=== PATIENT | female | born 1985 | race Caucasian/White ===

== ENCOUNTER 2018-06-30 00:27 | Inpatient (IN) | payer MEDICAID ==
[~2018-06-30] VITALS: Ht 160 cm; Wt 85.9 kg
[2018-06-30] MEDS ORDERED: METHYLERGONOVINE 0.2 MG INJ IM PRN (01:30)
[2018-06-30] MEDS ORDERED: OXYTOCIN 30 UNITS/LR 500 ML IV PRN (01:30)
[2018-06-30] MEDS ORDERED: MISOPROSTOL 200 MCG TAB PR PRN ×2 (01:30→08:00)
[2018-06-30] MEDS ORDERED: CEFAZOLIN 2 GM/50 ML (PMX) 50 ML IVPB SCH (01:30)
[2018-06-30] MEDS ORDERED: CARBOPROST 250 MCG INJ IM PRN (01:30)
[2018-06-30] MEDS: LACTATED RINGER'S 1,000 ML IV SCH ×3 (01:35→17:28)
[2018-06-30 01:38] VITALS: Ht 160 cm; Wt 85.9 kg
--- NOTE | 2018-06-30 02:28 | HP ---
Date/Time of Note Date/Time of Note DATE: 06/30/18 TIME: 02:15 OB - History Hx of Present Free Text/Dictation 33y.o who had x2 previous c/s her at 38weeks with c/o uc's since 06/29/1799 and leaking since 06/29/18 VE 0.5/50/-3 with spec exam seen pooling in the vagina,ntz pos ROM plus sent. patient also desire to have tubal sterilization , signed on 05/22/18 last meal was course was unevenful. GBS neg prepare for repeat C/S and BTL for her OB early in am. Chief Complaint: UC's SROM Estimated Due Date: Jul 16, 2018 : 4 Para: 2 Spontaneous : 1 Therapeutic : 0 Care: Good Care Ultrasounds: Normal mid trimester US Obstetrical Complications: None Medical Complications: None Past Family/Social History * Past Medical, Surgical, Family and Obstetric Histories reviewed from chart. Blood Type: O+ Rubella: immune RPR/VDRL: Negative GBS Status: Negative HBsAG: Negative OB Admission Exam Physical Exam HEENT: WNL Heart: Rhythm Normal Lungs: Clear, Equal Abdomen: WNL Extremities: Normal Reflexes: Normal Cervical Dilatation: Fingertip Effacement: 50% Station: -3 Membranes: Ruptured Amniotic Fluid: Clear Heart Rate: 130's Accelerations: Accelerations Present Decelerations: No Decelerations Varibility: Moderate Intensity: Mild OB Assessment/Plan Reason for admission: rupture of membranes Other Assessment: IUP 38w SROM in early labor Plan: Section, Other (BTL) NEENA ARITA MD Jun 30, 2018 02:25
--- NOTE | 2018-06-30 05:03 | TRIAGE ---
OB Triage Datetime Report Generated by CPN: 06/30/2018 05:03 Datetime: 06/30/2018 04:28 Monitor Mode: External Datetime: 06/30/2018 04:25 Assessment Type: Admission Assessment Vaginal Bleeding: None Maternal Assessment Level of Consciousness: Fully Conscious DTR's/Clonus: DTRs 2+; No Clonus Headache: Denies Blurred Vision: No Respiratory Effort: Unlabored; Regular Rhythm; Equal Expansion Breath Sounds, Left: Clear and Equal Breath Sounds, Right: Clear and Equal Nausea/Vomiting: Denies RUQ Epigastric Pain: Denies Lower Extremities Edema: None Degree: None Upper Extremities Edema: None Degree: None Facial Edema: None Fall Risk Assessment History of Falling: (0) No Secondary Diagnosis: (0) No Ambulatory Aid: (0) Bedrest/Nurse Assist IV Therapy: (0) No Gait: (0) Normal/Bedrest/Immobile Mental Status: (0) Oriented to Own Ability Fall Score: 0 Fall Risk Score Definition: No Risk: No action required Pain Assessment Pain Scale: 3 Pain Presence: Intermittent Pain Type: Contraction Pain Location: Back (Annotations: lower abdomen) Pain Goal: 4 Datetime: 06/30/2018 04:08 Monitor Mode: External Monitor Mode: External US Datetime: 06/30/2018 03:16 Monitor Mode: External Monitor Mode: External US Datetime: 06/30/2018 03:00 Stage of : OB Triage Labor Evaluation Frequency: IRREGULAR Monitor Mode: External Duration (sec)2399: 50-90 Quality: Mild Pattern: Normal: <= 5 Contractions in 10 Minutes Resting Tone Wright: Relaxed Heart Rate FHR Baseline Rate: 135 Monitor Mode: External US Variability: Moderate 6-25 bpm Accelerations: 15X15 Decelerations: None Category: Category I Datetime: 06/30/2018 02:12 Time of Arrival: 06/30/2018 01:00 EGA: 38.0 Arrived By: Stretcher Arrived From: Other Unit in Hospital Datetime: 06/30/2018 02:00 Stage of : OB Triage Labor Evaluation Frequency: 3-8 Monitor Mode: External Duration (sec)2399: 70-120 Quality: Mild Pattern: Normal: <= 5 Contractions in 10 Minutes Resting Tone Wright: Relaxed Heart Rate FHR Baseline Rate: 135 Monitor Mode: External US Variability: Moderate 6-25 bpm Accelerations: 15X15 Decelerations: None Category: Category I Datetime: 06/30/2018 01:40 Time of Arrival: 06/30/2018 00:16 EGA: 38.0 Arrived By: Ambulatory Arrived From: Home Chief Complaint: CONTRACTIONS SINCE 1800 SROM WITH CLEAR FLUIDS @2330 Movement: Present Contractions: Irregular Time Contractions Began: 06/29/2018 18:00 Contractions: 6-11 Rupture of Membranes: Ruptured Vaginal Bleeding: Scant Vaginal Discharge: Present Recent Sexual Intercouse: Denies Abdominal Trauma: Not Applicable Patient Complaints: Contractions; Other Time Provider Notified: 06/30/2018 01:00 Provider Notified: DR. ARITA Initial Plan: EFM, SVE, NITRIZINE, CALL OB Datetime: 06/30/2018 01:00 Stage of : OB Triage Labor Evaluation Frequency: 6-11 Monitor Mode: External Duration (sec)2399: 80-90 Quality: Mild Pattern: Normal: <= 5 Contractions in 10 Minutes Resting Tone Wright: Relaxed Heart Rate FHR Baseline Rate: 135 Monitor Mode: External US Variability: Moderate 6-25 bpm Accelerations: 15X15 Decelerations: Early Category: Category I Datetime: 06/30/2018 00:35 Vaginal Exam Dilatation (cms): 0.5 Effacement (%): 50 Station: -3 Exam By: Panfilo LOPEZ Membrane Status: Ruptured Membranes Ruptured Date/Time: 06/29/2018 23:30 Membranes Rupture Method: Spontaneous Amniotic Fluid Color: Clear Amniotic Fluid Amount: Moderate Amniotic Fluid Odor: None Vaginal Bleeding: Scant Nitrazine: Positive Cervix, Consistency: Moderate Cervix, Position: Posterior Datetime: 06/30/2018 00:30 Stage of : OB Triage Maternal Assessment Level of Consciousness: Fully Conscious DTR's/Clonus: DTRs 2+; No Clonus Headache: Denies Blurred Vision: No Respiratory Effort: Unlabored; Regular Rhythm; Equal Expansion Breath Sounds, Left: Clear and Equal Breath Sounds, Right: Clear and Equal Nausea/Vomiting: Denies RUQ Epigastric Pain: Denies Lower Extremities Edema: None Degree: None Upper Extremities Edema: None Degree: None Facial Edema: None Temperature Route: Oral Fall Risk Assessment History of Falling: (0) No Secondary Diagnosis: (0) No Ambulatory Aid: (0) Bedrest/Nurse Assist IV Therapy: (0) No Gait: (0) Normal/Bedrest/Immobile Mental Status: (0) Oriented to Own Ability Fall Score: 0 Fall Risk Score Definition: No Risk: No action required Pain Assessment Pain Scale: 2 Pain Presence: Intermittent Pain Type: Contraction Pain Location: Abdomen Pain Goal: 5 Pain Relief Measures: Comfort Measures Datetime: 06/30/2018 00:29 Monitor Mode: External Contraction Comments: APPLIED Monitor Mode: External US Comments: APPLIED
[2018-06-30] MEDS ORDERED: EPHEDrine 50 MG INJ ONE (05:45)
[2018-06-30] MEDS ORDERED: METOCLOPRAMIDE 10 MG INJ ONE (05:45)
[2018-06-30] MEDS ORDERED: CITRIC ACID/NA CITRATE 30 ML CUP PO STA ×2 (06:10→06:13)
[2018-06-30] MEDS ORDERED: CITRIC ACID/NA CITRATE 30 ML CUP ONE (06:22)
--- NOTE | 2018-06-30 06:30 | PREAC ---
Date/Time of Note Date/Time of Note DATE: 06/30/18 TIME: 06:27 Anesthesia Eval and Record Evaluation Time Pre-Procedure Interview DATE: 06/30/18 TIME: 05:57 Age 33 Sex female NPO: 8 hrs Preoperative diagnosis , labor, prev. c/s, water broke, sterilization request Planned procedure repeat c/s, btl Past Medical History Past Medical History: Includes : : (4), Para: (2), Gestational age: (38.5) Surgery & Anesthesia Issues No known issue Meds Anticoagulation: No Beta Jeannette within 24 hr: No Reason Beta Jeannette not given: Pt. not on B-Jeannette Current Medications Lactated Ringer's 1,000 ml @ 125 mls/hr Q8H IV Last administered on 06/30/18at 04:29; Admin Dose 125 MLS/HR; Start 06/30/18 at 01:10 Cefazolin Sodium/ Dextrose 50 ml @ 100 mls/hr ONCE IVPB ; Start 06/30/18 at 01:30 Oxytocin/Lactated Ringer's 500 ml @ 125 mls/hr POST IV ; Start 06/30/18 at 01:30 Oxytocin/Lactated Ringer's 500 ml @ 0 mls/hr ONCE PRN IV .VAGINAL BLEEDING; Start 06/30/18 at 01:30 Methylergonovine Maleate (Methergine) 0.2 mg ONCE PRN IM .VAGINAL BLEEDING; Start 06/30/18 at 01:30 Carboprost Tromethamine (Hemabate) 250 mcg ONCE PRN IM .VAGINAL BLEEDING; Start 06/30/18 at 01:30 Misoprostol (Cytotec) 1,000 mcg ONCE PRN DE .VAGINAL BLEEDING; Start 06/30/18 at 01:30 Meds reviewed: Yes Allergies Coded Allergies: No Known Allergy (Unverified , 06/30/18) Allergies Reviewed: Yes Labs/Studies Labs Reviewed: Reviewed by anesthesiologist Result Diagram: 06/30/18 0135 Laboratory Tests 06/30/18 01:35 Blood Bank Test 06/30/18 01:35 Antibody Screen NEGATIVE Blood Type O POSITIVE Rh Immune Globulin Candidate NO test: Positive Studies: ECG (n/a), CXR (n/a) Pre-procedure Exam Airway: Adequate mouth opening, Adequate thyromental dist Mallampati: Mallampati II Teeth: Normal Lung: Normal Heart: Normal ASA Physical Status ASA physical status: 2 Emergency: E Planned Anesthetic General/MAC: TIVA Neuraxial: Spinal Planned Pain Management Sub-arachniod narcotics, Local by surgeon Pre-operative Attestations Prior to commencing anesthesia and surgery, the patient was re-evaluated, there was verification of: *The patient's identity *The results of appropriate recent lab work and preoperative vital signs *The above evaluation not changing prior to induction *Anesthetic plan, risk benefits, alternative and complications discussed with patient/family; questions answered; patient/family understands, accepts and wishes to proceed. Land Leasing Examiner used LUDMILA SOTO MD Jun 30, 2018 06:29
[2018-06-30] MEDS ORDERED: morphine SULFATE/PF (10 MG/10 ML) INJ ONE (06:44)
[2018-06-30] MEDS ORDERED: AZITHROMYCIN ONE (06:45)
[2018-06-30] MEDS ORDERED: [UNRECOGNIZED DRUG - OTHER] ONE (06:45)
--- NOTE | 2018-06-30 06:55 | HP ---
Date/Time of Note Date/Time of Note DATE: 06/30/18 TIME: 06:52 OB - History Hx of Present Free Text/Dictation 33 YO with IUP at 38 weeks with EDC 07/14/2018 with history of previous delivery, who desires to have repeat delivery and Permanent sterilization. she arrives to L&D due to SROM. I discussed with the patient the risks, benefits, indications, and alternatives of procedure including but not limited to risks of infection, bleeding, damage to other organs, bowel, bladder, hernia formation, scar formation, possibility of blood transfusion, possible need for emergency hysterectomy, as well as the fact that tubal ligation may fail and there is 1 to 2% risk of failure over lifetime of tubal ligations and the fact that tubal ligation is permanent and irreversible. She was allowed to ask questions. All her questions were answered. Informed consent has been obtained. Care: Good Care Ultrasounds: Normal mid trimester US Obstetrical Complications: None Medical Complications: None Past Family/Social History * Past Medical, Surgical, Family and Obstetric Histories reviewed from chart. OB Admission Exam Physical Exam HEENT: WNL Heart: Rhythm Normal Lungs: Clear, Equal Abdomen: WNL Extremities: Normal Reflexes: Normal Cervical Dilatation: 3cm Last 72 hours Lab Results CBC & BMP 06/30/18 01:35 OB Assessment/Plan Other Assessment: Assessment: IUP 38 weeks SROM h/o previous x 2 Desires repeat Desires permanent sterilization Other plan: Plan: Repeat Delivery Tubal ligation may be done by either salpingectomy or modified [facility] BTL MARIO SPENCER MD Jun 30, 2018 06:55
[2018-06-30] MEDS ORDERED: ONDANSETRON 4 MG INJ ONE (06:56)
[2018-06-30] MEDS ORDERED: MIDAZOLAM 1 MG/ML 2 ML INJ ONE (07:09)
[2018-06-30] MEDS ORDERED: OXYTOCIN 10 UNIT INJ ONE ×3 (07:09→07:14)
[2018-06-30] MEDS ORDERED: LACTATED RINGER'S 1,000 ML IV ONE (07:24)
--- NOTE | 2018-06-30 07:27 | PAC ---
Date/Time of Note Date/Time of Note DATE: 06/30/18 TIME: 10:00 Post-Anesthesia Notes Post-Anesthesia Note Activity: WNL Respiratory function: WNL Cardiovascular function: WNL Mental status: Baseline Pain reasonably controlled: Yes Hydration appropriate: Yes Nausea/Vomiting absent: Yes LUDMILA SOTO MD Jun 30, 2018 07:27
[2018-06-30] MEDS ORDERED: NALOXONE (0.4 MG/ML) INJ IV PRN (07:30)
[2018-06-30] MEDS ORDERED: ZOLPIDEM 5 MG TAB PO PRN (07:30)
[2018-06-30] MEDS ORDERED: ONDANSETRON 4 MG INJ IV ONE (07:30)
[2018-06-30] MEDS ORDERED: HYDROmorphONE 0.5 MG/0.5 ML SYG IV PRN ×2 (07:30)
[2018-06-30] MEDS ORDERED: KETOROLAC 30 MG INJ IV PRN (07:30)
[2018-06-30] MEDS ORDERED: MEPERIDINE 25 MG INJ IV PRN (07:30)
[2018-06-30] MEDS ORDERED: NALBUPHINE HCL (10 MG/1 ML) INJ IV PRN (07:30)
[2018-06-30] MEDS ORDERED: DIPHENHYDRAMINE 50 MG INJ IV PRN ×2 (07:30)
[2018-06-30] MEDS ORDERED: CITRIC ACID/NA CITRATE 30 ML CUP PO ONE (07:30)
[2018-06-30] MEDS ORDERED: MIDAZOLAM 1 MG/ML 2 ML INJ IV PRN (07:30)
[2018-06-30] MEDS ORDERED: ONDANSETRON 4 MG INJ IV PRN (07:30)
--- NOTE | 2018-06-30 07:30 | OPPN ---
Date/Time of Note Date/Time of Note DATE: 07/01/18 TIME: 00:30 Anesthesia Follow up Anesthesia Follow up Respiratory function: WNL Cardiovascular function: WNL Comments S: pt. is pod #1. min. bt pain. min. need for bt pain meds ie. nsaids/opiates. ambulating. min. n/v. O: vss, afeb. A: min. bt pain sec. to it mso4. P: no complications. LUDMILA SOTO MD Jun 30, 2018 07:30
[2018-06-30] MEDS ORDERED: LACTATED RINGER'S 1,000 ML IV SCH (07:46)
--- NOTE | 2018-06-30 07:46 | OPR ---
Date/Time of Note Date/Time of Note DATE: 06/30/18 TIME: 07:42 Operative Report Procedure Date: Jun 30, 2018 Preoperative Diagnosis h/o deliveries x 2 Desires permanent sterilization Postoperative Diagnosis same Operation/Procedure Performed Repeat delivery Bilateral distal salpingectomies Surgeon Mario Noriega MD Marshmallow Runner MS Nanette MD Anesthesia Type: spinal Estimated Blood Loss: other (700) Transfusion none Specimen distal segments of tubes Grafts/Implants none Tubes/Drains Moore Cath Complications none Pt Condition Post Procedure: stable Disposition: PACU Procedure Description The risks, benefits, indications, alternatives of procedure including, but not limited to risk of infection, bleeding, damage to other organs, bowel, bladder, hernia formation, scar formation, possibility of blood transfusions, the risks of tubal ligation such as failure and future pregnancies were discussed with the patient. The fact that BTL is permanent and irreversible also discussed with angie moreira. She was allowed to ask questions. All her questions were answered. Informed consent was obtained. DESCRIPTION OF PROCEDURE: She was taken to the operating room. Spinal anesthesia was induced. She was prepped and draped in the usual sterile fa shion. Surgical time out one. Anesthesia was tested to be adequate. With permission from anesthesiologist, a knife was used to make a Pfannenstiel skin incision. The incision was taken down in layers. The fascia was cut, undermined and from the underlying muscle using sharp and blunt dissection. All the bleeders were cauterized. Peritoneum was entered bluntly. A low transverse incision was developed over the uterus. Amniotic fluid was clear and adequate. A viable infant in vertex presentation was delivered without any difficulty. The cord was clamped and cut, handed to awaiting team. Placenta was then delivered. Uterus was exteriorized, wrapped around a moist lap. Inside uterus was cleaned using a dry lap. All residual membranes were removed. The uterine incision was then closed using #1 Monocryl in 2 layers. 5 cm distal end of the right tube was ligated 3 times using 0 plain tie and the ligated portion was cut, sent to pathology. Same procedure was done on the contralateral side. The uterus was inserted back inside the abdominal cavity. Irrigation was done carefully. Careful evaluation of the uterine incision revealed no further bleeding. The tubal ligation sites were evaluated carefully. There was no bleeding. The peritoneum and rectus muscles and fascia were evaluated. All bleeders cauterized. Peritoneum was closed using 2-0 Monocryl. At this time, t he count was correct. Rectus muscle was reapproximated using 2-0 Monocryl. Rectus fascia was closed using #1 Vicryl. Subcutaneous tissue was cleaned and irrigated. All bleeders cauterized and the skin closed using Insorb. All counts correct. MARIO SPENCER MD Jun 30, 2018 07:46
[2018-06-30] MEDS ORDERED: NA PHOSPHATE/BIPHOS 133 ML ENEMA PR PRN (08:00)
[2018-06-30] MEDS ORDERED: OXYCODONE/ACETAMINOPHEN (5/325) TAB PO PRN (08:00)
[2018-06-30] MEDS ORDERED: LANOLIN HPA 1 PKT TOP PRN (08:00)
[2018-06-30] MEDS: OXYTOCIN 30 UNITS/LR 500 ML IV SCH ×2 (08:26→12:44)
[2018-06-30] MEDS: SENNA/DOCUSATE NA (8.6MG/50MG) TAB PO SCH ×2 (09:00→21:00)
[2018-06-30 09:11] VITALS: BP 117/62; PULSE 90; RESP 20
[2018-06-30 11:00] VITALS: BP 118/74; PULSE 74; RESP 18
[2018-06-30] MEDS: IBUPROFEN 600 MG TAB PO SCH ×3 (12:00→23:27)
[2018-06-30 12:15] VITALS: BP 124/68; PULSE 74; RESP 19
[2018-06-30 16:00] VITALS: BP 119/58; PULSE 96; RESP 19
[2018-06-30 19:45] VITALS: BP 107/57; RESP 20
[2018-07-01] MEDS: LACTATED RINGER'S 1,000 ML IV SCH ×3 (01:43→17:10)
[2018-07-01 03:35] VITALS: BP 91/50; PULSE 75; RESP 20
[2018-07-01] MEDS: IBUPROFEN 600 MG TAB PO SCH ×4 (06:00→23:40)
[2018-07-01 08:00] VITALS: BP 105/56; PULSE 80; RESP 19
[2018-07-01] MEDS: OXYCODONE/ACETAMINOPHEN (5/325) TAB PO PRN (09:40)
[2018-07-01] MEDS: SENNA/DOCUSATE NA (8.6MG/50MG) TAB PO SCH ×2 (09:41→21:59)
[2018-07-01 15:50] VITALS: BP 96/55; PULSE 82; RESP 18
[2018-07-01 20:00] VITALS: BP 108/53; PULSE 87; RESP 87
--- NOTE | 2018-07-01 20:17 | QN ---
Documentation Comment s/p c/s Subjective: no complaint Objective: Afebrile, VSS NAD A&O Abdomen: soft, appropriate tender Incision: no sign of bleeding/infection mild lochia Extremity: 1+ edema bilaterally Assessment: S/p C/S. POD # 1 Recovering Well Plan: current care MARIO SPENCER MD Jul 01, 2018 20:17
[2018-07-02] MEDS: OXYCODONE/ACETAMINOPHEN (5/325) TAB PO PRN ×2 (01:49→15:04)
[2018-07-02 03:40] VITALS: BP 101/53; PULSE 78; RESP 18
[2018-07-02] MEDS: IBUPROFEN 600 MG TAB PO SCH ×2 (05:39→12:24)
[2018-07-02 08:00] VITALS: BP 108/59; PULSE 75; RESP 20
[2018-07-02] MEDS: SENNA/DOCUSATE NA (8.6MG/50MG) TAB PO SCH (09:33)
--- NOTE | 2018-07-02 14:18 | DS ---
Date/Time of Note Date/Time of Note DATE: 07/02/18 TIME: 14:17 Obstetrical Discharge Record Final Diagnosis Final Diagnosis: Term delivered Vaginal Delivery Obstetrical Delivery: Bilateral Tubal Ligation Section Section: Repeat Complications Augmentation: No Induction: No Rupture of Membranes: No Condition on Discharge Physical Assessment Voiding: Yes Bowel Movement: Yes Breast: Soft, non-tender, Filling Fundus: Firm Abdomen and Incision: soft, appropriate tenderness, no sign of infection on the incision Calf Tenderness: No Patient Condition: Good MARIO SPENCER MD Jul 02, 2018 14:18
[2018-07-02] MEDS ORDERED: DIPHTH/TET/ACEL PERTUSS (ADULT) 0.5 ML VIAL IM* ONE (15:00)
[2018-07-03] MEDS ORDERED: MEASLES,MUMPS,RUBELLA VACCINE INJ SC* ONE (09:00)
[2018-07-03] MEDS ORDERED: DIPHTH/TET/ACEL PERTUSS (ADULT) 0.5 ML VIAL IM* ONE (09:00)
--- NOTE | 2018-07-03 17:13 | DELSUM ---
Delivery Summary A-C Datetime Report Generated by CPN: 07/03/2018 17:12 DELIVERY PERSONNEL Executive Recruiter: Isrrael Douglass MATERNAL INFORMATION Delivery Anesthesia: Spinal Medications in Delivery: see anesthesia record Delivery QBL (ml): 600 Placenta Cultured: No Maternal Complications: None LABOR SUMMARY EDC: 07/14/2018 00:00 No. Babies in Womb: 1 Attempted: No Labor Anesthesia: None LABOR INFORMATION Reason for Induction: Not Applicable Onset of Labor: 06/29/2018 18:00 Oxytocin: N/A Group B Beta Strep: Negative Antibiotics # of Doses: 2 Antibiotics Time of Last Dose: 06/30/2018 07:05 Steroids Given: None Reason Steroids Not Administered: Not Applicable MEMBRANES Membranes Rupture Method: Spontaneous Rupture of Membranes: 06/29/2018 23:30 Length of Rupture (hr): 7.68 Amniotic Fluid Color: Clear Amniotic Fluid Amount: Moderate Amniotic Fluid Odor: None STAGES OF LABOR Stage 3 hr: 0 Stage 3 min: 2 Total Time in Labor hr: 13 Total Time in Labor min: 13 CSECTION DELIVERY Primary Indication: Repeat Elective Secondary Indication: N/A CSection Urgency: Elective CSection Incidence: Repeat Labor: Labor Elective: Nonelective CSection Incision: Lower Uterine Transverse Sterilization Procedure: [facility] BABY A INFORMATION Infant Delivery Date/Time: 06/30/2018 07:11 Method of Delivery: Born in Route : No : N/A Forceps: N/A Vacuum Extraction: N/A Shoulder Dystocia : N/A SHOULDER DYSTOCIA BABY A Delivery Date/Time: 06/30/2018 07:11 PRESENTATION/POSITION BABY A Presentation: Cephalic Cephalic Presentation: Vertex Vertex Position: Left Occipital Anterior Breech Presentation: N/A PLACENTA INFORMATION BABY A Placenta Delivery Time : 06/30/2018 07:13 Placenta Method of Delivery: Manual Removal Placenta Status: Delivered SCORES BABY A Heart Rate 1 min: >100 bpm Resp Effort 1 min: Good Cry Reflex Irritability 1 min: Cough/Sneeze/Pulls Away Muscle Tone 1 min: Active Motion Color 1 min: Body [place], Extremit Blue Resuscitation Effort 1 min: Tactile Stimulation SCORE 1 MIN: 9 Heart Rate 5 min: >100 bpm Resp Effort 5 min: Good Cry Reflex Irritability 5 min: Cough/Sneeze/Pulls Away Muscle Tone 5 min: Active Motion Color 5 min: Body [place], Extremit Blue Resuscitation Effort 5 min: Tactile Stimulation SCORE 5 MIN: 9 INFANT INFORMATION BABY A Gestational Age at Delivery: 38.0 Gestational Status: Early Term- 37- 38.6 Weeks Infant Outcome : Liveborn Infant Condition : Stable Sex: Male IDENTIFICATION/MEDS BABY A ID Band Number: [id number] ID Band Location: Right Leg; Left Arm Sensor Applied: Yes Sensor Number: [id number] Sensor Location : Cord Clamp Vitamin K Given : Not Given Erythromycin Given: Not Given WEIGHT/LENGTH BABY A Birthweight (gm): 3770 Weight (lb): 8 Infant Weight (oz): 5 Infant Length (in): 20.00 Infant Length (cm): 50.80 CORD INFORMATION BABY A No. Cord Vessels: 3 Nuchal Cord : N/A Cord Blood Taken: Yes Banking/Donate Info: n/a Infant Suction: Mouth; Nose ASSESSMENT BABY A Infant Complications: None Physical Findings at Delivery: Within Normal Limits Respirations: Appears Normal Field Service Engineer/ALS Called : No Infant Care By: SUNI/RIKY Transferred To: Remains with Mother
== END 2018-07-02 17:11 | disposition home or self-care (01) | DRG 785 ==
LOC: OBT 00:27 → L-D 00:29 → OBT 01:00 → L-D 06:58 → PP1 10:54
PROVIDERS: ADMIT Specialist; ATTEND Specialist
PROC: 0UT70ZZ Resection of Bilateral Fallopian Tubes, Open Approach (ICD-10-PCS; 2018-06-30)
PROC: 10D00Z1 Extraction of Products of Conception, Low, Open Approach (ICD-10-PCS; principal; 2018-06-30 07:00)
DX: O65.5 Obstructed labor due to abnormality of maternal pelvic organs (principal); O34.211 Maternal care for low transverse scar from previous cesarean delivery; Z30.2 Encounter for sterilization; Z3A.38 38 weeks gestation of pregnancy; Z37.0 Single live birth
CPT/HCPCS: 84112; 85025; 85610; 85730; 86592; 86850; 86900; 86901; 87340; 88302; 90715; 99464; G0463; J0456; J0690; J1885; J2250; J2274; J2405; J2590; J2765; J7120